=== PATIENT | female | born 1950 | race Caucasian/White ===

== ENCOUNTER 2020-01-01 07:17 | Emergency (ER) | payer MEDICARE, BC ==
[~2020-01-01] VITALS: Ht 162.6 cm; Wt 113.6 kg
[2020-01-01 07:31] VITALS: BP 146/96
[2020-01-01 08:24] LABS: BACTERIA,URINE FEW /HPF (0-FEW); BILIRUBIN,URINE NEG (NEG); CLARITY,URINE CLOUDY; COLOR,URINE STRAW; GLUCOSE,URINE NEG (NEG); NITRITE,URINE NEG (NEG); SQUAMOUS EPITHELIAL CELL,UR FEW /LPF
[2020-01-01] MEDS ORDERED: SULF1TAB24 PO (08:30)
--- NOTE | 2020-01-01 08:30 | PHYS DOC ---
Past History Past Medical History: No Pertinent History Past Surgical History: Tubal ligation Alcohol Use: None Adult General Chief Complaint Chief Complaint: FLANK PAIN HPI HPI Patient is a 69-year-old female who presents with complaint of suprapubic discomfort as well as lower back pain for about the last week. Patient states that she has also had some pain with urination and foul-smelling urine for the same period of time. She denies any fever. She denies any chest pain or s hortness breath. Patient states that she has been trying to drink plenty of fluids but symptoms are just not getting any better.[] Review of Systems Review of Systems Constitutional: Denies fever or chills [] Respiratory: Denies cough or shortness of breath [] Cardiovascular: No additional information not addressed in HPI [] GI: Complains of suprapubic pain without vomiting or diarrhea [] : Complains of dysuria[] Musculoskeletal: Complains of lower back pain [] Integument: Denies rash or skin lesions [] All other systems were reviewed and found to be within normal limits, except as documented in this note. Allergies Allergies Allergies Coded Allergies Type Severity Reaction Last Updated Verified No Known Drug Allergies 01/01/20 No Physical Exam Physical Exam Constitutional: Well developed, well nourished, no acute distress, non-toxic appearance. [] HENT: Normocephalic, atraumatic, bilateral external ears normal, oropharynx moist, no oral exudates, nose normal. [] Eyes: PERRLA, EOMI, conjunctiva normal, no discharge. [] Neck: Normal range of motion, no tenderness, supple, no stridor. [] Cardiovascular: Regular rate and rhythm[] Lungs & Thorax: Bilateral breath sounds clear to auscultation [] Abdomen: Bowel sounds normal, soft, with suprapubic tenderness. [] Skin: Warm, dry, no erythema, no rash. [] Extremities: No tenderness, no cyanosis, no clubbing, ROM intact, no edema. [] Neurologic: Alert and oriented X 3, no focal deficits noted. [] Current Patient Data Vital Signs Vital Signs Date Time Temp Pulse Resp B/P (MAP) Pulse Ox O2 Delivery O2 Flow Rate FiO2 01/01/20 07:31 97.3 77 18 146/96 (113) 97 Room Air Lab Results Laboratory Tests Test 01/01/20 07:47 Urine Collection Type Unknown Urine Color Straw Urine Clarity Cloudy Urine pH 6.0 Urine Specific [place] 1.010 Urine Protein Trace (NEG-TRACE) Urine Glucose (UA) Neg mg/dL (NEG) Urine Ketones (Stick) Neg mg/dL (NEG) Urine Blood Small (NEG) Urine Nitrite Neg (NEG) Urine Bilirubin Neg (NEG) Urine Urobilinogen Dipstick 1.0 mg/dL (0.2 mg/dL) Urine Leukocyte Esterase Mod (NEG) Urine RBC 3-5 /HPF (0-2) Urine WBC 11-20 /HPF (0-4) Urine Squamous Epithelial Cells Few /LPF Urine Bacteria Few /HPF (0-FEW) EKG EKG [] Radiology/Procedures Radiology/Procedures [] Course & Med Decision Making Course & Med Decision Making Pertinent Labs and Imaging studies reviewed. (See chart for details) [] Dragon Disclaimer Dragon Disclaimer This electronic medical record was generated, in whole or in part, using a voice recognition dictation system. Departure Departure: Impression: Primary Impression: Urinary tract infection Disposition: HOME, SELF-CARE Condition: STABLE Referrals: CIERRA WESLEY MD (PCP) Patient Instructions: Urinary Tract Infection Scripts Sulfamethoxazole/Trimethoprim (BACTRIM DS TABLET) 1 Each Tablet 1 TAB PO BID for infection for 10 Days, #20 TAB 0 Refills Prov: CASSANDRA CHANDLER Jr. DO 01/01/20 Problem Qualifiers Primary Impression: Urinary tract infection Urinary tract infection type: site unspecified Hematuria presence: with hematuria Qualified Codes: N39.0 - Urinary tract infection, site not specified; R31.9 - Hematuria, unspecified CASSANDRA CHANDLER Jr. DO Jan 01, 2020 08:30
== END 2020-01-01 08:32 | disposition home or self-care (01) ==
LOC: ER 07:17
DX: N39.0 Urinary tract infection, site not specified (principal); R31.9 Hematuria, unspecified; Z98.51 Tubal ligation status
CPT/HCPCS: 81001; 87086; 99283

== ENCOUNTER 2020-04-10 06:24 | Emergency (ER) | payer MEDICARE, BC ==
[~2020-04-10] VITALS: Ht 162.6 cm; Wt 117.0 kg
[2020-04-10 06:24] VITALS: BP 154/89
[~2020-04-10 06:24] MED LIST: SULF1TAB24 PO
[2020-04-10] MEDS ORDERED: LIDOCAINE 1% Multi-Dose 20 ML VIAL. IJ ONE (07:00)
[2020-04-10] MEDS ORDERED: SMZ/TMP 800/160MG TABLET. PO ONE (07:15)
[2020-04-10] MEDS ORDERED: KETO15CR2 TP (07:22)
[2020-04-10] MEDS ORDERED: SULF1TAB24 PO (07:22)
--- NOTE | 2020-04-10 07:23 | PHYS DOC ---
Past History Past Medical History: No Pertinent History Past Surgical History: Tubal ligation Alcohol Use: None General Adult EDM: Chief Complaint: SKIN RASH/ABSCESS HPI: HPI: Patient is a 69-year-old morbidly obese female who presents with skin rash in her skin folds around her lower abdominal area. She states this is been ongoing now for several weeks. She has been unable to find her primary care physician. She has been using Neosporin and this has not helped at home. Not particularly itchy. She has noticed the redness has increased and now there is a small area that seems like it may be a staph infection.] Review of Systems: Review of Systems: Constitutional: Denies fever or chills Eyes: Denies change in visual acuity HENT: Denies nasal congestion or sore throat Respiratory: Denies cough or shortness of breath Cardiovascular: Denies chest pain or edema GI: Denies abdominal pain, nausea, vomiting, bloody stools or diarrhea : Denies dysuria Musculoskeletal: Denies back pain or joint pain Integument: Per HPI Neurologic: Denies headache, focal weakness or sensory changes Endocrine: Denies polyuria or polydipsia Lymphatic: Denies swollen glands Psychiatric: Denies depression or anxiety Heart Score: Risk Factors: Risk Factors: DM, Current or recent (<one month) smoker, HTN, HLP, family history of CAD, obesity. Risk Scores: Score 0 - 3: 2.5% MACE over next 6 weeks - Discharge Home Score 4 - 6: 20.3% MACE over next 6 weeks - Admit for Clinical Observation Score 7 - 10: 72.7% MACE over next 6 weeks - Early Invasive Strategies Current Medications: Current Meds: Current Medications Medications (Trade) Dose Ordered Sig/[facility] Start Time Stop Time Status Last Admin Dose Admin Lidocaine HCl 20 ml 1X ONCE 04/10/20 07:00 04/10/20 07:01 DC Allergies: Allergies: Allergies Coded Allergies Type Severity Reaction Last Updated Verified No Known Drug Allergies 01/01/20 No Physical Exam: PE: Constitutional: Well developed, well nourished, no acute distress, non-toxic appearance. [] HENT: Normocephalic, atraumatic, bilateral external ears normal, oropharynx moist, no oral exudates, nose normal. [] Eyes: PERRLA, EOMI, conjunctiva normal, no discharge. [] Neck: Normal range of motion, no tenderness, supple, no stridor. [] Cardiovascular:Heart rate regular rhythm, no murmur [] Lungs & Thorax: Bilateral breath sounds clear to auscultation [] Abdomen: Bowel sounds normal, soft, no tenderness, no masses, no pulsatile masses. [] Skin: Intertriginous erythema with multiple satellite lesions there is also a red rash around her umbilicus furthermore, she has a 1.5 x 1.5 cm abscess just on the underside of her abdominal panniculus [] Back: No tenderness, no CVA tenderness. [] Extremities: No tenderness, no cyanosis, no clubbing, ROM intact, no edema. [] Neurologic: Alert and oriented X 3, normal motor function, normal sensory function, no focal deficits noted. [] Psychologic: Affect normal, judgement normal, mood normal. [] Current Patient Data: Vital Signs: Vital Signs Date Time Temp Pulse Resp B/P (MAP) Pulse Ox O2 Delivery O2 Flow Rate FiO2 04/10/20 06:24 98.2 18 154/89 (110) EKG: EKG: [] Radiology/Procedures: Radiology/Procedures: [] Course & Med Decision Making: Course & Med Decision Making Pertinent Labs and Imaging studies reviewed. (See chart for details) [Procedure: Incision and drainage abscess The area was anesthetized with 3 cc of 1% lidocaine and then using an 11 blade a 1 cm incision was made over the top of the abscess with a moderate amount of purulent material expressed. A dressing was then placed.] Dragon Disclaimer: Dragon Disclaimer: This electronic medical record was generated, in whole or in part, using a voice recognition dictation system. Departure Departure: Impression: Primary Impression: Intertriginous candidiasis Additional Impression: Cutaneous abscess of abdominal wall Disposition: 01 HOME/RESIDENCE PRIOR TO ADM Condition: STABLE Referrals: CIERRA WESLEY MD (PCP) Patient Instructions: Abscess, Care After, Intertrigo Additional Instructions: Please take medication as directed. Return to the emergency department with any new or concerning symptoms Scripts Ketoconazole (KETOCONAZOLE) 15 Gm Cream..g. 1 CARRIE TP BID for cutaneous candidiasis, #60 GM 2 Refills Prov: HECTOR INFANTE DO 04/10/ Sulfamethoxazole/Trimethoprim (BACTRIM DS TABLET) 1 Each Tablet 1 TAB PO BID for Abscess for 10 Days, #20 TAB 0 Refills Prov: HECTOR INFANTE DO 04/10/20 HECTOR INFANTE DO Apr 10, 2020 07:23
== END 2020-04-10 07:35 | disposition home or self-care (01) ==
LOC: ER 06:24
DX: B37.2 Candidiasis of skin and nail (principal); L02.211 Cutaneous abscess of abdominal wall
CPT/HCPCS: 10060; 99283

== ENCOUNTER → 2021-04-04 | Outpatient (CLI) | payer MEDICARE, BC ==
[~2021-04-04] MED LIST changes: +KETO15CR2 TP
--- NOTE | 2021-04-04 09:42 | RAD ---
EXAM: Abdomen, 2 views. HISTORY: Pain. COMPARISON: None. FINDINGS: 2 views of the abdomen are obtained. There is gas and stool within the colon. There is no e vidence of bowel obstruction. There is no free air. IMPRESSION: Nonobstructive bowel gas pattern. Electronically signed by: Meg Malik MD (04/04/2021 9:40 AM) [id number]
== END ==
LOC: RAD 08:49
PROVIDERS: ATTEND Nurse Practitioner Family
DX: R10.12 Left upper quadrant pain (principal)
CPT/HCPCS: 74018

== ENCOUNTER → 2021-04-09 | Outpatient (CLI) | payer MEDICARE, BC ==
[2021-04-09 10:38] LABS: BASO # 0.1 x10^3/uL (0.0-0.2); BASO % 1 % (0-3); EOS # 0.1 x10^3/uL (0.0-0.7); EOS % 1 % (0-3); HEMATOCRIT 39.5 % (36.0-47.0); HEMOGLOBIN 12.8 g/dL (12.0-15.5); LYMPH # 1.2 x10^3/uL (1.0-4.8); LYMPH % 15 % (24-48); MEAN CORPUSCULAR HEMOGLOBIN 29 pg (25-35); MEAN CORPUSCULAR HGB CONC 33 g/dL (31-37); MEAN CORPUSCULAR VOLUME 88 fL (79-100); MONO # 0.4 x10^3/uL (0.0-1.1); MONO % 5 % (0-9); NEUT # 6.2 x10^3uL (1.8-7.7); NEUT % 79 % (31-73); PLATELET COUNT 177 x10^3/uL (140-400); RED BLOOD COUNT 4.49 x10^6/uL (3.50-5.40); RED CELL DISTRIBUTION WIDTH 16.8 % (11.5-14.5); WHITE BLOOD COUNT 7.8 x10^3/uL (4.0-11.0)
[2021-04-09 11:11] LABS: ALBUMIN 3.1 g/dL (3.4-5.0); ALBUMIN/GLOBULIN RATIO 0.8 (1.0-1.7); CALCIUM 8.7 mg/dL (8.5-10.1); CREATININE 0.7 mg/dL (0.6-1.0); POTASSIUM 4.1 mmol/L (3.5-5.1); TOTAL BILIRUBIN 0.4 mg/dL (0.2-1.0); TOTAL PROTEIN 7.1 g/dL (6.4-8.2)
[2021-04-09 14:04] LABS: FREE T4 0.89 ng/dL (0.76-1.46); THYROID STIM HORMONE (TSH) 1.359 uIU/mL (0.358-3.740)
== END ==
LOC: LAB 08:30
PROVIDERS: ATTEND Internal Medicine Gastroenterology
DX: R19.4 Change in bowel habit (principal)
CPT/HCPCS: 36415; 80053; 84439; 84443; 85025